=== PATIENT | male | born 1995 | race African-American/Black ===

== ENCOUNTER 2025-04-21 21:12 | Emergency (ER) | payer MEDICAID, OTHER ==
[~2025-04-21] VITALS: Ht 175.3 cm; Wt 87.2 kg
--- NOTE | 2025-04-21 21:28 | ED.PDOC ---
Back pain HPI HPI Comments left upper chest pain with inspiration since yesterday morning.. no radiation. pain is sharp. no sob. 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 Chief Complaint: Chest Pain Time Seen by MD: 21:17 Reviewed Notes: Nurses Notes, Medications, Allergies Allergies: Coded Allergies: NO KNOWN ALLERGIES (Unverified , 04/21/25) Information Source: Patient Mode of Arrival: Ambulatory Timing: Days Duration: Since onset Severity: Mild Quality: Sharp Onset: Spontaneous Modifying Factors: Other (inspiration) Past Medical History PAST MEDICAL HISTORY: Denies Surgical History: Denies all surgeries Family History Family History: Reviewed,noncontributory to illness, No family hx of Cancer, No family hx of DM, No family hx of Heart benigno, No family hx of HTN, No family hx ofKidney benigno, No family hx of Liver benigno, No family hx of Lung benigno, No family hx of Stroke Social History Smoker: Other (smokes marijuana) Alcohol: Denies ETOH Use Drugs: Denies Drug Use Constitutional: denies: chills, diaphoresis, fatigue, fever, malaise, sweats, weakness, others EENTM: denies: blurred vision, double vision, ear bleeding, ear discharge, ear drainage, ear pain, ear ringing, eye pain, eye redness, hearing loss, mouth pain, mouth swelling, nasal discharge, nose bleeding, nose congestion, nose pain, photophobia, tearing, throat pain, throat swelling, voice changes, others Respiratory: denies: cough, hemoptysis, orthopnea, SOB at rest, shortness of breath, SOB with excertion, stridor, wheezing, others Cardiovascular: reports: chest pain; denies: dizzy spells, diaphoresis, Dyspnea on exertion, edema, irregular heart beat, left arm pain, lightheadedness, palpitations, PND, syncope, others Gastrointestinal: denies: abdomen distended, abdominal pain, blood streaked bowels, constipated, diarrhea, dysphagia, difficulty swallowing, hematemesis, melena, nausea, poor appetite, poor fluid intake, rectal bleeding, rectal pain, vomiting, others Genitourinary: denies: burning, dysuria, flank pain, frequency, hematuria, incontinence, penile discharge, penile sore, pain, testicle pain, testicle swelling, urgency, others Neurological: denies: dizziness, fainting, headache, left sided numbness, left sided weakness, numbness, paresthesia, pre-existing deficit, right sided numbness, right sided weakness, seizure, speech problems, tingling, tremors, weakness, others Musculoskeletal: denies: back pain, gout, joint pain, joint swelling, muscle pain, muscle stiffness, neck pain, others Integumetry: denies: bruises, change in color, change in hair/nails, dryness, laceration, lesions, lumps, rash, wounds, others Allergic/Immunocompromised: denies: Difficulty Healing, Frequent Infections, Hives, Itching, others Hematologic/Lymphatic: denies: anemia, blood clots, easy bleeding, easy bruising, swollen glands, others Endocrine: denies: excessive hunger, excessive sweating, excessive thirst, excessive urination, flushing, intolerance to cold, intolerance to heat, unexplained weight gain, unexplained weight loss, others Psychiatric: denies: anxiety, bipolar disorder, depression, hopeless, panic disorder, schizophrenia, sleepless, suicidal, others All Other Systems: Reviewed and Negative Physical Exam General Appearance: No Apparent Distress, Normal HEENT: Normal ENT Inspection, Pharynx Normal, TMs Normal Neck: Full Range of Motion, Non-Tender, Normal, Normal Inspection Respiratory: Chest Non-Tender, Lungs Clear, No Accessory Muscle Use, No Respiratory Distress, Normal Breath Sounds, Other (inspiration reproduces smae chest pain) Cardiovascular: No Edema, No JVD, No Murmur, No Gallop, Normal Peripheral Pulses, Regular Rate/Rhythm Breast Exam: Deferred Gastrointestinal: No Organomegaly, Non Tender, No Pulsatile Mass, Normal Bowel Sounds, Soft Genitalia: Deferred Pelvic: Deferred Rectal: Deferred Extremities: No calf tenderness, Normal capillary refill, Normal inspection, Normal range of motion, Non-tender, No pedal edema Musculoskeletal : Apperance: Normal 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 Was a procedure done?: No EKG EKG : Pulse Rate (adult): 90 [place]: Normal Cardiac Rhythm: NSR Block: None Hypertrophy: None ST: Normal Back Pain Differential Dx Differential Diagnosis: Musculoskeletal Pain, Other (pe, angina, ptx, lung mass, rib fracture, zoster) X-Ray, Labs, Meds, VS Vital Signs Date Time Temp Pulse Resp B/P (MAP) Pulse Ox O2 Delivery O2 Flow Rate FiO2 04/21/25 21:28 90 04/21/25 21:23 90 04/21/25 21:20 98.9 96 18 140/96 (111) 97 98.9 Time of 1ST Reevaluation: 22:52 Reevaluation 1ST: Unchanged Patient Education/Counseling: Diagnosis, Treatment, Prognosis, Need For Follow Up Family Education/Counseling: No Family Present Comments pt has no PE risk factors, he is not hypoxic, has no leg pain, not tachycardic, is not dyspneic or has rapid RR. he has no cardiac risk factors, with a low HEART score. cxr suggests a RLL infiltrate. given his symptoms of inspiratory chest pain, i will treat him for pneumonia SEPSIS Sepsis Screen Physician Orders Electrocardigram (04/21/25 21:18) Chest Portable (04/21/25 21:23) Vital Signs Date Time Temp Pulse Resp B/P (MAP) Pulse Ox O2 Delivery O2 Flow Rate FiO2 04/21/25 21:28 90 04/21/25 21:23 90 04/21/25 21:20 98.9 96 18 140/96 (111) 97 98.9 Departure 1 Departure Time of Disposition: 22:53 Impression: Primary Impression: Pleurisy Additional Impression: Pneumonia Qualified Codes: J18.9 - Pneumonia, unspecified organism Disposition: 01 HOME / SELF CARE / HOMELESS Condition: Good e-Prescriptions Ibuprofen Micronized (MOTRIN TABLET) 600 Mg Tb 600 MG PO TID PRN, #40 TAB *Black box warning-NSAIDS can increase risk of OH & hypertension, GI irritation, ulceration, bleed, perferation. Do not use post cardiac surgery. Use short duration/lowest effective dose. Prov: ROGERS SANCHEZ MD 04/21/25 Azithromycin (Zithromax Z-Akhil) 250 Mg Tab 250 MG PO DAILY for 5 Days, #5 TAB Prov: ROGERS SANCHEZ MD 04/21/25 Discharged With: Self Critical Care Note Critical Care Time?: No Stability Stability form required: No Heart Score Heart Score: Heart Score Response (Comments) Value History Slightly Suspicious 0 EKG Normal 0 Age <45 0 Risk Factors No known risk factors 0 Troponin N/A 0 Total 0 ROGERS SANCHEZ MD Apr 21, 2025 21:28
--- NOTE | 2025-04-21 22:06 | DVH ---
CHEST RADIOGRAPH Indication: cp Technique: Single frontal view of the chest was obtained Comparison: None FINDINGS: Lines and Tubes: None Lungs: Infiltrate or atelectasis noted medially in the right lower lung field. This may be in the rig ht middle lobe medial segment. Pleura: No effusion. No pneumothorax. Cardiomediastinal contours: Unremarkable Bones: No acute osseous abnormality. IMPRESSION: 1. Possible infiltrate or atelectasis right lower lobe medially. There are no prior studies for
[2025-04-21] MEDS ORDERED: cefTRIAXone SOD 1,000 MG VL IM ONE (22:45)
[2025-04-21] MEDS ORDERED: AZITTAB PO (22:55)
[2025-04-21] MEDS ORDERED: IBU600T PO (22:55)
[2025-04-22 00:20] VITALS: BP 112/80; TEMP 98
[2025-04-22 00:21] VITALS: PULSE 90; RESP 20; O2SAT 96
[2025-04-22] MEDS: AZITHROMYCIN 250 MG TAB PO ONE (00:34)
--- NOTE | 2025-04-26 14:50 | ECG ---
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
== END 2025-04-22 00:58 | disposition home or self-care (01) ==
LOC: ER 21:12
DX: R09.1 Pleurisy (principal); J18.9 Pneumonia, unspecified organism; F12.90 Cannabis use, unspecified, uncomplicated; F17.200 Nicotine dependence, unspecified, uncomplicated
CPT/HCPCS: 71045; 93005